=== PATIENT | female | born 1955 | race Two or more races ===

== ENCOUNTER 2020-06-22 11:32 | Outpatient (CLI) | payer OTHER | END 2020-06-22 11:39 | disposition home or self-care (01) | LOC: SONOGRAMA 11:32 | PROVIDERS: ATTEND Pathology Anatomic Pathology & Clinical Pathology | DX: E04.2 Nontoxic multinodular goiter (principal) ==

== ENCOUNTER 2022-02-26 07:10 | Outpatient (CLI) | payer OTHER | END 2022-02-26 08:36 | disposition home or self-care (01) | LOC: LAB 07:10 | PROVIDERS: ATTEND Pathology Anatomic Pathology & Clinical Pathology | DX: U07.1 COVID-19 (principal); B37.1 Pulmonary candidiasis ==

== ENCOUNTER 2022-02-26 08:29 | Outpatient (CLI) | payer OTHER | END 2022-02-26 08:30 | disposition home or self-care (01) | LOC: NUCLEAR 08:29 | PROVIDERS: ATTEND Internal Medicine Cardiovascular Disease | DX: R07.9 Chest pain, unspecified (principal) ==